=== PATIENT | female | born 1975 | race Caucasian/White ===

== ENCOUNTER 2017-04-14 21:26 | Emergency (ER) | payer OTHER ==
[~2017-04-14 21:26] MED LIST: BCP; DOXY-1 PO; LOR5/325 PO; METR-160 PO; NORG1TAB76 PO
--- NOTE | 2017-04-14 21:53 | ER Report ---
History and Physical Time Seen By MD: 21:34 HPI/ROS CHIEF COMPLAINT: Infected dog bi HISTORY OF PRESENT ILLNESS: Dog bite right forearm was sutured here on Tuesday she reports taking doxycycline and Flagyl. At 9 AM line was drawn around the cellulitis area. Now cellulitis extends over centimeter past the area is warm to touch mild to moderate pain and no discharge. No fevers chills nausea or vomiting REVIEW OF SYSTEMS: Constitutional: No fever, no chills. Eyes: No discharge. ENT: No sore throat. Cardiovascular: No chest pain, no palpitations. Respiratory: No cough, no shortness of breath. Gastrointestinal: No abdominal pain, no vomiting. Genitourinary: No hematuria. Musculoskeletal: No back pain. Skin: Otherwise normal Neurological: No headache. Allergies: Coded Allergies: amoxicillin (Verified Allergy, Intermediate, 04/12/17) Home Meds Active Scripts Metronidazole (METRONIDAZOLE) 500 Mg Tablet, 500 MG PO TID, #30 TAB 0 Refills Prov:SHONNA WHITEHEAD MD 04/12/17 Doxycycline Hyclate (VIBRAMYCIN) 100 Mg Capsule, 100 MG PO BID for 7 Days, #14 CAPSULE 0 Refills Prov:BRITTON YAP MD 04/12/17 Reported Medications Norgestrel-Ethinyl Estradiol (CRYSELLE) 1 Each Tablet, 1 TAB PO DAILY 04/12/17 Discontinued Reported Medications [Bcp] No Conflict Check 04/12/17 Discontinued Scripts Hydrocodone Bit/Acetaminophen (HYDROCODON-ACETAMINOPHEN 5-325) 1 Each Tablet, 1 EACH PO Q4-6H for PAIN, #12 TAB 0 Refills Prov:BRITTON YAP MD 04/12/17 Hx Substance Use Disorder: No Hx Alcohol Use: Yes (RARE) Constitutional Vital Sign - Last 24 Hours 04/14/17 21:34 Temp 98.2 Pulse 69 Resp 18 B/P (MAP) 122/96 Pulse Ox 98 O2 Delivery Room Air Physical Exam General Appearance: The patient is alert, has no immediate need for airway protection and no signs of toxicity. She is no acute distress Eyes: Pupils equal and round no pallor or injection. ENT, Mouth: Mucous membranes are moist. Respiratory: There are no retractions, lungs are clear to auscultation. Cardiovascular: Regular rate and rhythm. No murmurs gallops or rubs Gastrointestinal: Abdomen is soft and non tender, no masses, bowel sounds normal. Neurological: Normal gross neuro exam Skin: Cellulitis right forearm over 8 x 4 cm extending past clearly drawn By over a centimeter. Musculoskeletal: Neck is supple non tender. Extremities are nontender, nonswollen and have full range of motion. No signs of compartment syndrome or fasciitis DIFFERENTIAL DIAGNOSIS: After history and physical exam differential diagnosis was considered for cellulitis abscess doubt compartment syndrome or fasciitis. Medical Decision Making Data Points Result Diagram: 04/14/17220704/14/172207 Laboratory Hematology Test 04/14/17 22:08 Red Blood Count 4.55 M/uL (4.17-5.56) Mean Corpuscular Volume 87.9 fL (80.0-96.0) Mean Corpuscular Hemoglobin 30.1 pg (26.0-33.0) Mean Corpuscular Hemoglobin Concent 34.2 g/dL (32.0-36.0) Red Cell Distribution Width 13.5 % (11.5-14.5) Mean Platelet Volume 8.1 fL (7.2-11.1) Neutrophils (%) (Auto) 67.2 % (39.4-72.5) Lymphocytes (%) (Auto) 21.1 % (17.6-49.6) Monocytes (%) (Auto) 10.1 % (4.1-12.4) Eosinophils (%) (Auto) 1.2 % (0.4-6.7) Basophils (%) (Auto) 0.4 % (0.3-1.4) Nucleated RBC Relative Count (auto) 0.0 /100WBC Neutrophils # (Auto) 5.6 K/uL (2.0-7.4) Lymphocytes # (Auto) 1.7 K/uL (1.3-3.6) Monocytes # (Auto) 0.8 K/uL (0.3-1.0) Eosinophils # (Auto) 0.1 K/uL (0.0-0.5) Basophils # (Auto) 0.0 K/uL (0.0-0.1) Nucleated RBC Absolute Count (auto) 0.00 K/uL Erythrocyte Sedimentation Rate 15 mm/HOUR (0-20) Sodium Level 137 mmol/L (137-145) Potassium Level 4.5 mmol/L (3.5-5.0) Chloride Level 104 mmol/L (98-107) Carbon Dioxide Level 25 mmol/L (22-31) Blood Urea Nitrogen 12 mg/dl (7-18) Creatinine 0.80 mg/dl (0.52-1.04) Glomerular Filtration Rate Calc > 60.0 Random Glucose 88 mg/dl (75-110) Calcium Level 8.4 mg/dl (8.4-10.2) C-Reactive Protein 6.4 mg/dl (<1.0) Chemistry Test 04/14/17 22:08 White Blood Count 8.3 k/uL (4.5-11.0) Red Blood Count 4.55 M/uL (4.17-5.56) Hemoglobin 13.7 g/dL (12.0-16.0) Hematocrit 40.0 % (34.0-47.0) Mean Corpuscular Volume 87.9 fL (80.0-96.0) Mean Corpuscular Hemoglobin 30.1 pg (26.0-33.0) Mean Corpuscular Hemoglobin Concent 34.2 g/dL (32.0-36.0) Red Cell Distribution Width 13.5 % (11.5-14.5) Platelet Count 193 K/uL (150-450) Mean Platelet Volume 8.1 fL (7.2-11.1) Neutrophils (%) (Auto) 67.2 % (39.4-72.5) Lymphocytes (%) (Auto) 21.1 % (17.6-49.6) Monocytes (%) (Auto) 10.1 % (4.1-12.4) Eosinophils (%) (Auto) 1.2 % (0.4-6.7) Basophils (%) (Auto) 0.4 % (0.3-1.4) Nucleated RBC Relative Count (auto) 0.0 /100WBC Neutrophils # (Auto) 5.6 K/uL (2.0-7.4) Lymphocytes # (Auto) 1.7 K/uL (1.3-3.6) Monocytes # (Auto) 0.8 K/uL (0.3-1.0) Eosinophils # (Auto) 0.1 K/uL (0.0-0.5) Basophils # (Auto) 0.0 K/uL (0.0-0.1) Nucleated RBC Absolute Count (auto) 0.00 K/uL Erythrocyte Sedimentation Rate 15 mm/HOUR (0-20) Glomerular Filtration Rate Calc > 60.0 Calcium Level 8.4 mg/dl (8.4-10.2) C-Reactive Protein 6.4 mg/dl (<1.0) ED Course/Re-evaluation ED Course 04/14/2017 10:13:01 pm case discussed with the surgeon who will eval. Decision to Disposition Date: Apr 15, 2017 Decision to Disposition Time: 00:52 Depart Departure Latest Vital Signs Vital Signs Date Time Temp Pulse Resp B/P (MAP) Pulse Ox O2 Delivery O2 Flow Rate FiO2 04/14/17 21:34 98.2 69 18 122/96 98 Room Air Impression: Primary Impression: Infected dog bite Additional Impression: Cellulitis of right forearm Condition: Improved Disposition: HOME OR SELF-CARE Referrals: BLAYNE RIVERA MD (PCP) New Scripts Sulfamethoxazole/Trimet 800-160 Mg Tab (BACTRIM DS TABLET) 1 Each Tablet 1 TAB PO Q12H for 7 Days, #14 TAB Prov: DELONTE NYE MD 04/15/17 Consult Note: 04/14/2017 10:04:32 pm : Consult placed to general surgery for infected dog bite closed on doxycycline and Flagyl with worsening cellulitis. Case discussed with Dr. Welch. Problem Qualifiers DELONTE NYE MD Apr 14, 2017 21:53
[2017-04-14 22:15] LABS: PLATELET COUNT, AUTOMATED 193 K/uL (150-450)
--- NOTE | 2017-04-14 22:55 | RADIOLOGY IMAGING REPORT ---
FAC[facility] PATIENT NAME: Colt Ramires : 1975 MR: [id number] V: [id number] EXAM DATE: ORDERING PHYSICIAN: DELONTE NYE TECHNOLOGIST: Location: [facility] - [place] Patient: Colt Ramires : 1975 Visit/Account:[id number] Date of Sevice: 04/14/2017 EXAMINATION: Right forearm 2 views. HISTORY: Gas-forming bacteria, infected dog bite COMPARISON: None. FINDINGS: The right radius and ulna appear radiographically intact, without evidence of fracture. Normal alignm ent at the wrist and elbow. Normal mineralization. Soft tissue swelling along the right forearm. No radiopaque foreign body or soft tissue gas. IMPRESSION: 1. Soft tissue swelling along the right forearm. No soft tissue gas or radiopaque foreign body. 2. Osseous structures are unremarkable. Report Dictated By: Sky Lin MD at 04/14/2017 10:49 PM Report E-Signed By: Sky Lin MD at 04/14/2017 10:50 PM WSN:[id number]
[2017-04-14] MEDS ORDERED: D5W IVPB ONE (23:45)
[2017-04-14] MEDS ORDERED: TRIMETH IVPB ONE (23:45)
[2017-04-14] MEDS ORDERED: SULFA IVPB ONE (23:45)
--- NOTE | 2017-04-14 23:55 | General Surgery Consultation ---
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 She was bitten by a dog 3 days ago that resulted in an open wound slightly greater than 1cm full thickness of the skin. This was closed after cleaning and she was placed on doxycycline and flagyl due to a penicillan allergy. She has had expansion of erythema progressively over the past 24 hours that covers over 20cm in length and 7cm in width. She has a pen balwinder on her arm that was drawn earlier today and the erythema is now outside of this line. The skin is not hypersensitive but she does have marked urticaria. She took some claritan with no improvement. History Home Meds Active Scripts Metronidazole (METRONIDAZOLE) 500 Mg Tablet, 500 MG PO TID, #30 TAB 0 Refills Prov:SHONNA WHITEHEAD MD 04/12/17 Doxycycline Hyclate (VIBRAMYCIN) 100 Mg Capsule, 100 MG PO BID for 7 Days, #14 CAPSULE 0 Refills Prov:BRITTON YAP MD 04/12/17 Reported Medications Norgestrel-Ethinyl Estradiol (CRYSELLE) 1 Each Tablet, 1 TAB PO DAILY 04/12/17 Discontinued Reported Medications [Bcp] No Conflict Check 04/12/17 Discontinued Scripts Hydrocodone Bit/Acetaminophen (HYDROCODON-ACETAMINOPHEN 5-325) 1 Each Tablet, 1 EACH PO Q4-6H for PAIN, #12 TAB 0 Refills Prov:BRITTON YAP MD 04/12/17 Allergies: Coded Allergies: amoxicillin (Verified Allergy, Intermediate, 04/12/17) Review of Systems All Systems Reviewed/Normal: Yes, Except as Noted Constitutional: No Fever Exam Vital Signs Vital Signs Date Time Temp Pulse Resp B/P (MAP) Pulse Ox O2 Delivery O2 Flow Rate FiO2 04/14/17 21:34 98.2 69 18 122/96 98 Room Air General Appearance: Alert, Awake, No Acute Distress Neuro: No Gross deficits Eyes: PERRLA Extremities: Other (no pain with passive or active motion of her fingers or wrist) Integumentary: Other (~12mm wound sutured with two sutures. "pink" erythema covering the majority of her forearm. no drainage from wound.) Psych: Alert & Oriented X3, Appropriate Mood & Affect Medical Decision Making Data Points Result Diagram: 12/220704/14/172207 Assessment and Plan Problems: (1) Dog bite Status: Acute Assessment & Plan: She appears that she may have a cellulitis associated with the dog bite that has progressed despite treatment with doxycycline and flagyl. I removed the two sutures and reopened the wound. I can clearly see the underlying muscle and fascia which appears clean. There was no purulent drainage or necrotic tissue. Her skin does have a bit of an atypical appearance for a cellulitis in that it is not hypersensitive and her more dominant complaint is urticaria. Recognizing that pasteurella may be one of the organisms not fully covered, I will switch her to bactrim. Since she has already proven to be progressing despite therapy, I will give her first dose IV here followed by pills in the am. She will follow-up with me tomorrow to evaluate her response. Time Spent: > 30 min Venous Thromboembolism VTE Risk Physician Assess for VTE Risk: Yes Patient's VTE Risk: Low VTE Diagnostic Test 2 Days Prior to Admit: No Antithrombotics Is Pt On Any Antithrombotics?: No Problem Qualifiers (1) Dog bite: Encounter type: subsequent encounter Qualified Codes: W54.0XXD - Bitten by dog, subsequent encounter JANE RODRIGUEZ MD Apr 14, 2017 23:55
[2017-04-15] MEDS ORDERED: [UNRECOGNIZED DRUG - OTHER] ONE (00:14)
[2017-04-15] MEDS ORDERED: SULF-198 PO (00:54)
[2017-04-15 02:14] VITALS: BP 138/82
== END 2017-04-15 02:17 | disposition home or self-care (01) ==
LOC: ER 21:45
DX: L03.113 Cellulitis of right upper limb (principal); L08.9 Local infection of the skin and subcutaneous tissue, unspecified
CPT/HCPCS: 36415; 73090; 85025; 85651; 86140; 96365; 96366; 99283; J3490; J7060; 82310; 82374; 82435; 82565; 82947; 84132; 84295; 84520